=== PATIENT | female | born 1995 | race Caucasian/White ===

== ENCOUNTER 2021-06-26 12:16 | Emergency (ER) | payer OTHER ==
[2021-06-26 14:18] LABS: BASOPHIL 0.3 % (0-2); EOSINOPHIL 0 % (0-5); HCT 40.7 % (37.0-47.0); HGB 14.3 g/dl (12.5-16.0); LYMPHOCYTE 9.1 % (15-48); MCHC 35.1 g/dL (32.0-36.0); MCV 91.1 fL (78.0-100.0); MONOCYTE 8.8 % (0-12); MPV 12.7 fL (6.0-9.5); NEUTROPHIL 81.4 % (41-80); NRBC 0; PLT 240 K/uL (150-400); RBC 4.47 M/uL (4.20-5.40); RDW 12.1 % (11.5-14.0)
[2021-06-26 14:19] LABS: BILIRUBIN NEGATIVE (NEGATIVE); BLOOD 2+ Ery/uL (NEGATIVE); CLARITY CLEAR (CLEAR); COLOR YELLOW (YELLOW); GLUCOSE (U) NORMAL (NORMAL); LEUKOCYTES 1+ Leu/uL (NEGATIVE); NITRITE POSITIVE (NEGATIVE); PROTEIN 2+ mg/dL (NEGATIVE); SPECIFIC GRAVITY 1.025 (1.001-1.030); UROBILINOGEN 0.2 mg/dL (0.2-1.0)
[2021-06-26 14:22] LABS: WBC 15.2 K/uL (4.0-10.5)
[2021-06-26 14:28] LABS: BACTERIA 4+; URINARY WBC 20-50
[2021-06-26 14:47] LABS: ALBUMIN 2.7 g/dL (3.4-5.0); BILIRUBIN - TOTAL 0.5 mg/dL (0.2-1.0); BUN/CREAT RATIO (CALC) 21.5 RATIO; CREATININE 0.79 mg/dL (0.51-0.95); GLOBULIN (CALCULATION) 5.2 g/dL; POTASSIUM 3.8 mmol/L (3.5-5.1); TOTAL PROTEIN 7.9 g/dL (6.4-8.2)
[2021-06-26 14:58] LABS: LACTIC ACID 0.9 mmol/L (0.4-1.9)
[2021-06-26 17:44] LABS: BUN/CREAT RATIO (CALC) 19.5 RATIO; CREATININE 0.77 mg/dL (0.51-0.95)
[2021-06-26] MEDS ORDERED: CIPRO500 MG PO (18:04)
[2021-06-26] MEDS ORDERED: PERCOCET 5-3251 EACH PO (18:04)
[2021-06-26] MEDS ORDERED: FLOMAX0.4 MG PO (18:04)
== END 2021-06-26 18:49 | disposition home or self-care (01) ==
LOC: FER 12:16
PROVIDERS: Nurse Practitioner Family
DX: N13.6 Pyonephrosis (principal); E87.1 Hypo-osmolality and hyponatremia; Z88.1 Allergy status to other antibiotic agents
CPT/HCPCS: 36415; 80048; 80053; 81001; 83605; 83690; 85025; 87076; 87088; 87186; J0696; J1885; J2270; J2405; J7030